=== PATIENT | female | born 1945 | race Asian ===

== ENCOUNTER 2017-03-10 15:12 | Emergency (ER) | payer OTHER, BC ==
[~2017-03-10] VITALS: Ht 149.9 cm; Wt 59.0 kg
[2017-03-10 17:52] VITALS: BP 119/69
== END 2017-03-10 17:52 | disposition home or self-care (01) ==
LOC: ED 15:12
DX: S83.91XA Sprain of unspecified site of right knee, initial encounter (principal); S86.911A Strain of unspecified muscle(s) and tendon(s) at lower leg level, right leg, initial encounter; E78.5 Hyperlipidemia, unspecified; W01.0XXA Fall on same level from slipping, tripping and stumbling without subsequent striking against object, initial encounter; Y93.89 Activity, other specified; Y99.8 Other external cause status; Y92.89 Other specified places as the place of occurrence of the external cause; Z98.890 Other specified postprocedural states